=== PATIENT | male | born 1970 | race Caucasian/White ===

== ENCOUNTER 2022-12-30 09:03 | Emergency (ER) | payer OTHER, BC ==
[2022-12-30 09:12] VITALS: BP 145/91; PULSE 70; RESP 18; TEMP 98.8; BMI 27.2
[2022-12-30] MEDS ORDERED: IBUPROFEN 600 MG TABLET (FP) PO ONE ×2 (09:34→09:36)
== END 2022-12-30 09:55 | disposition home or self-care (01) ==
LOC: FER 09:03
DX: R10.9 Unspecified abdominal pain (principal); W01.198A Fall on same level from slipping, tripping and stumbling with subsequent striking against other object, initial encounter; Y92.512 Supermarket, store or market as the place of occurrence of the external cause
CPT/HCPCS: 99283-25